=== PATIENT | female | born 1945 | race Caucasian/White ===

== ENCOUNTER 2020-08-27 19:05 | Emergency (ER) | payer MEDICARE, OTHER ==
[~2020-08-27] VITALS: Ht 170.2 cm; Wt 57.7 kg
--- NOTE | 2020-08-27 19:58 | NUR ---
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
--- NOTE | 2020-08-27 20:00 | NUR ---
PT SITTING ON CART, ALVARO SPINTED C PILLOW. +PMS. PT STATES SHE STEPPED OFF A DITCH IN HER DAUGHTERS YARD. DENIES LOC. PENDING XRAYS. FAMILY AT .
[2020-08-27] MEDS ORDERED: ATEN25TA PO (20:02)
[2020-08-27] MEDS ORDERED: CYCLOBENZAPRINE 10 MG TABLET ONE (20:15)
[2020-08-27] MEDS ORDERED: IBUPROFEN 600 MG TABLET ONE (20:15)
[2020-08-27] MEDS ORDERED: IBUPROFEN 200 MG TABLET PO ONE (20:30)
[2020-08-27] MEDS ORDERED: CYCLOBENZAPRINE 10 MG TABLET PO ONE (20:30)
[2020-08-27 20:56] VITALS: BP 135/72
== END 2020-08-27 20:58 | disposition home or self-care (01) ==
LOC: ED 20:52
DX: S52.502A Unspecified fracture of the lower end of left radius, initial encounter for closed fracture (principal); S39.012A Strain of muscle, fascia and tendon of lower back, initial encounter; I10 Essential (primary) hypertension; W01.0XXA Fall on same level from slipping, tripping and stumbling without subsequent striking against object, initial encounter; Y93.89 Activity, other specified; Y92.009 Unspecified place in unspecified non-institutional (private) residence as the place of occurrence of the external cause; Y99.8 Other external cause status
CPT/HCPCS: 29125; 72110; 99284

== ENCOUNTER 2020-09-08 07:53 | Day surgery (SDC) | payer MEDICARE ==
[2020-09-05 11:14] LABS: BASOPHILS % (AUTO) 1 % (0-1); EOSINOPHILS % (AUTO) 1 % (1-7); LYMPHOCYTES % (AUTO) 19 % (22-44); MEAN CORPUSCULAR HGB CONC 33.9 g/dL (32.4-35.8); MEAN PLATELET VOLUME 11.9 fL (7.4-10.4); MONOCYTES % (AUTO) 6 % (2-9); NEUTROPHILS % (AUTO) 74 % (42-75); PLATELET COUNT 68 x10^3/uL (130-400); RED BLOOD COUNT 4.73 x10^6/uL (3.82-5.3)
[2020-09-05 11:23] VITALS: BP 170/88
[2020-09-05 11:23] LABS: MD NO
[~2020-09-08] VITALS: Ht 168.9 cm; Wt 56.4 kg
[~2020-09-08 07:53] MED LIST: ATEN25TA PO; BUPIVACAINE/PF 0.5% ONE; CALC-658 PO; EPINEPHRINE 1 MG/ML, 1ML ONE; L.AC1CAP6 PO; LEVO88TA2 PO; LYSI500T8 PO; MECO10005 PO; OMEP20CA20 PO; VITA10004 PO; VITA1TAB38 PO
[2020-09-08 08:43] VITALS: BP 179/91
[2020-09-08] MEDS ORDERED: LACTATED RINGERS 1,000 ML IV SCH (09:00)
[2020-09-08] MEDS ORDERED: CHLORHEXIDINE 15 ML UDC PO ONE (09:00)
[2020-09-08] MEDS ORDERED: FENTANYL PF 100 MCG/2ML ONE (09:17)
[2020-09-08] MEDS ORDERED: MIDAZOLAM 1 MG/ML, 2ML ONE (09:17)
[2020-09-08] MEDS ORDERED: PROPOFOL 10 MG/ML, 50ML ONE (10:05)
[2020-09-08] MEDS ORDERED: ONDANSETRON 2MG/ML, 2ML ONE (10:05)
[2020-09-08] MEDS ORDERED: CEFAZOLIN 1,000 MG ONE (10:05)
[2020-09-08] MEDS ORDERED: hydrALAzine 20 MG/ML, 1ML IV PRN (10:30)
[2020-09-08] MEDS ORDERED: DIAZEPAM 5 MG/ML, 2ML IVPush PRN (10:30)
[2020-09-08] MEDS ORDERED: ACETAMINOPHEN 325 MG TABLET PO PRN (10:30)
[2020-09-08] MEDS ORDERED: DIPHENHYDRAMINE 50 MG/ML, 1ML IVPush PRN (10:30)
[2020-09-08] MEDS ORDERED: LABETALOL 5MG/ML, 20ML IV PRN (10:30)
[2020-09-08] MEDS ORDERED: HYDROmorphone 1 MG/ML, 1ML INJ IVPush PRN (10:30)
[2020-09-08] MEDS ORDERED: HALOPERIDOL 5 MG/ML IV PRN (10:30)
[2020-09-08] MEDS ORDERED: FENTANYL PF 100 MCG/2ML IV PRN (10:30)
[2020-09-08] MEDS ORDERED: ONDANSETRON 2MG/ML, 2ML IVPush PRN (10:30)
[2020-09-08] MEDS ORDERED: METOCLOPRAMIDE 5 MG/ML, 2ML IVPush PRN (10:30)
[2020-09-08] MEDS ORDERED: PROMETHAZINE 25 MG/ML, 1ML IVPush PRN (10:30)
[2020-09-08] MEDS ORDERED: METOPROLOL 1 MG/ML, 5ML IV PRN (10:30)
[2020-09-08] MEDS ORDERED: EPHEDRINE 50 MG/ML, 1ML IVPush PRN (10:30)
== END 2020-09-08 13:35 | disposition home or self-care (01) ==
LOC: OUT 07:53
PROVIDERS: ATTEND Orthopaedic Surgery
DX: S52.572A Other intraarticular fracture of lower end of left radius, initial encounter for closed fracture (principal); W19.XXXA Unspecified fall, initial encounter; Y93.89 Activity, other specified; Y92.89 Other specified places as the place of occurrence of the external cause; Y99.8 Other external cause status; Z20.822 Contact with and (suspected) exposure to COVID-19; Z88.1 Allergy status to other antibiotic agents; Z88.5 Allergy status to narcotic agent; Z88.2 Allergy status to sulfonamides; Z88.8 Allergy status to other drugs, medicaments and biological substances; Z79.899 Other long term (current) drug therapy; Z72.89 Other problems related to lifestyle
CPT/HCPCS: 25609; 36415; 64415; 85025; 93005; C1713; J0690; J2250; J2405; J2704; J3010; J7120; U0003; U0005; 76000; J0171